=== PATIENT | female | born 1975 | race Caucasian/White ===

== ENCOUNTER → 2017-04-05 | Outpatient (CLI) | payer BC ==
--- NOTE | 2017-04-05 13:54 | DI ---
MRI BRAIN SCAN WITHOUT AND WITH IV CONTRAST, 04/05/2017 1:00 PM: Clinical History: Headache. Previous Exam: None at this facility. Sequences: Axial and sagittal T1 pre contrast and axial and coronal post contrast; axial T2 and FLAIR . Diffusion weighted images with ADC mapping are also performed. Contrast Dose: 11 mL of ProHance (279.3 mg/mL) was injected IV. The 4th, 3rd, and lateral ventricles are of normal size, shape, position, and contour for this patien t's age. There are no focal areas of abnormally increased or decreased signal intensity. There are no abnormal enhancing lesions. The right cerebellar tonsil descends below the foramen magnum by approxi mately 3 mm and the left cerebellar tonsil is at the level of the foramen magnum. Technically, this r epresents a type I Arnold-Chiari malformation. There are no extracerebral mantels or shift of the mid line structures. The paranasal sinuses are normal. Readin. The pre-and postcontrast scans of the brain are normal. 2. The right cerebellar consult does distend slightly below the foramen magnum and therefore kaia anderson represents a type I Arnold-Chiari malformation. Typically, before there are significant clinical symptoms referable to the tonsillar descent, the cerebellar tonsils have to descend in the range of 5 mm or more below the foramen magnum.
== END ==
LOC: MRI 12:55
PROVIDERS: ATTEND Nurse Practitioner Family
DX: G44.89 Other headache syndrome (principal); G93.5 Compression of brain
CPT/HCPCS: 70553